=== PATIENT | female | born 1990 | race Caucasian/White ===

== ENCOUNTER 2024-12-20 14:23 | Emergency (ER) | payer OTHER ==
[2024-12-20] MEDS ORDERED: Haldol 5 MG ONE (14:48)
[2024-12-20] MEDS: Haldol 5 MG IM ONE (14:49)
[2024-12-20 14:54] VITALS: TEMP 98.2
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
[2024-12-20 15:28] LABS: Absolute Neutrophil Ct (ANC) 12.72 x10^3/uL (1.56-6.13); BASOPHIL % 0.4 % (0.1-1.2); Basophil (Absolute #) 0.06 x10^3/uL (0.01-0.08); Eosinophil % 0.6 % (0.7-5.8); Hematocrit 41.7 % (34.1-44.9); Hemoglobin 13.6 g/dL (11.2-15.7); IMMATURE GRAN # 0.06 x10^3u/L (0.001-0.031); IMMATURE GRAN % 0.4 % (0.001-0.429); Lymphocyte (Absolute #) 2.88 x10^3/uL (1.18-3.74); Lymphocytes % 17.2 % (19.3-51.7); Mean Cell Volume 86.5 fL (79.4-94.8); Mean Corpuscular Hemoglobin 28.2 pg (25.6-32.2); Mean Corpuscular Hgb Concent. 32.6 g/dL (32.2-35.5); Mean Platelet Volume 9.9 fL (9.4-12.3); Monocyte (Absolute #) 0.88 x10^3/uL (0.24-0.86); Monocytes % 5.3 % (4.7-12.5); Neutrophil % 76.1 % (34.0-71.1); Platelet Count 348 x10^3/uL (182-369); Red Blood Count 4.82 x10^6/uL (3.93-5.22); Red Cell Distribution Width 14.8 % (11.7-14.4); White Blood Count 16.7 x10^3/uL (3.98-10.04)
[2024-12-20 15:42] LABS: ACETAMINOPHEN < 10 ug/ml (10-30); ALBUMIN 4.9 g/dL (3.5-5.0); ALKALINE PHOSPHATASE 76 U/L (38-126); ANION GAP 20.3 MEQ/L (5-15); BLOOD UREA NITROGEN 12 mg/dL (7-17); CHLORIDE 107 mmol/L (98-107); Calcium 9.3 mg/dL (8.4-10.2); Carbon Dioxide 17 mmol/L (22-30); ETHYL ALCOHOL < 10 mg/dL (0-10); Glucose 121 mg/dL (74-106); Potassium 3.5 mmol/L (3.5-5.1); SALICYLATE < 1.0 mg/dL (2-20); SGOT/AST 35 U/L (14-36); SGPT/ALT 34 U/L (0-35); SODIUM 141 mmol/L (135-145); Total Protein 8.4 g/dL (6.3-8.2)
[2024-12-20 16:14] LABS: Appearance Clear (Clear); Bacteria Rare /HPF (None Seen); Bilirubin Negative (Negative); Blood Negative (Negative); Epithelial Cells Few /HPF (None Seen); Glucose, Urine Negative (Negative); Ketones Trace (Negative); Leukocyte Esterase Negative (Negative); Nitrite Negative (Negative); Ph 5.5 (4.6-8.0); Protein,Urine Dip 30 (Negative); Specific Gravity 1.025 (1.005-1.030); Urobilinogen 0.2 mg/dL (0.2)
[2024-12-20 16:20] LABS: Amphetamine,Urine NEGATIVE (NEGATIVE); Barbiturate,Urine NEGATIVE (NEGATIVE); Benzodiazepine,Urine NEGATIVE (NEGATIVE); Cocaine,Urine NEGATIVE (NEGATIVE); Methadone,Urine NEGATIVE (NEGATIVE); Opiate,Urine NEGATIVE (NEGATIVE); PCP,Urine NEGATIVE (NEGATIVE); THC,Urine POSITIVE (NEGATIVE)
[2024-12-20] MEDS ORDERED: Ativan 2 MG/1 ML VIAL ONE ×2 (16:57→21:04)
[2024-12-20] MEDS: Ativan 2 MG/1 ML VIAL IV ONE ×2 (16:59→21:06)
[2024-12-20 20:15] VITALS: RESP 18
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
[2024-12-20 21:09] VITALS: BP 118/91; PULSE 87; O2SAT 99
== END 2024-12-21 00:55 | disposition short-term general hospital (02) ==
LOC: ED 14:23
DX: R45.88 Nonsuicidal self-harm (principal); R45.1 Restlessness and agitation; R45.4 Irritability and anger; Z91.148 Patient's other noncompliance with medication regimen for other reason; Z79.899 Other long term (current) drug therapy
CPT/HCPCS: 36415; 73130; 80053; 80143; 80179; 80307; 81001; 82077; 84439; 84443; 85025; 93005; 96372; 96374; 96376; 99285; J1630; J2060